=== PATIENT | male | born 1965 | race Asian ===

== ENCOUNTER 2019-05-11 09:41 | Outpatient (CLI) | payer BC ==
--- NOTE | 2019-05-11 12:09 | MRI ---
MULTI PARAMETRIC MRI OF THE PELVIS (PROSTATE) WITH AND WITHOUT IV CONTRAST WITH REVIEW ON INDEPENDENT 3-D WORKSTATION: HISTORY: Elevated PSA (7.71 on 04/20/2019), prostate biopsy. Family history of prostate cancer COMPARISON: None FINDINGS: PROSTATE: The prostate gland measures 6.3 x 4 x 4.2 cm with a volume of 55 cc. PERIPHERAL ZONE: No focal abnormal areas of restricted diffusion is seen to suggest malignant process . TRANSITIONAL ZONE: No lentiform area of abnormally decreased T2 signal is seen to suggest a malignant process. Small focal areas of high T1 signal are seen consistent with biopsy-related hemorrhage No focal arterial enhancing mass is seen. Prostatic capsule is intact. The seminal vesicles are intact. LYMPH NODES: No lymphadenopathy is seen. SOFT TISSUES: Pelvic sidewall is normal. No abnormality of the visualized rectum is seen. BONES: No abnormal areas of signal replacement on the T1-weighted sequences are seen to suggest osseo us metastatic disease. IMPRESSION: PI-RADS 2: Low (clinically significant prostate cancer is unlikely to be present). This exam was interpreted in consultation with Dr. Patric Taylor who concurs.
[2019-05-11] MEDS ORDERED: Magnevist 469MG/ML 20 ML VIAL ONE (15:59)
== END 2019-05-11 09:42 | disposition home or self-care (01) ==
LOC: TBSIIMAG 09:41
PROVIDERS: ATTEND Urology
DX: R97.20 Elevated prostate specific antigen [PSA] (principal); Z80.42 Family history of malignant neoplasm of prostate; Z98.890 Other specified postprocedural states
CPT/HCPCS: 72197; A9579

== ENCOUNTER 2019-11-18 06:35 | Day surgery (SDC) | payer BC ==
[2019-11-13 12:03] VITALS: BMI 19.9
[2019-11-18] MEDS ORDERED: Levofloxacin 500 mg/D5W 100 ml Premix Bag ONE (07:15)
[2019-11-18] MEDS ORDERED: Midazolam HCl 2 mg/2 ml Vial ONE (08:08)
[2019-11-18] MEDS ORDERED: Fentanyl 100 MCG/2 ML VIAL ONE (08:08)
[2019-11-18] MEDS ORDERED: Ondansetron PF 4 MG/2 ML Vial ONE (09:30)
[2019-11-18] MEDS ORDERED: PROPOFOL 200 MG/20 ML VIAL ONE (09:30)
[2019-11-18] MEDS ORDERED: EPHEDRINE 25 MG/5 ML SYRINGE ONE (09:30)
[2019-11-18] MEDS ORDERED: Dexamethasone 20 MG/5 ML VIAL ONE (09:30)
--- NOTE | 2019-11-18 09:54 | OP ---
DATE OF PROCEDURE: 11/18/2019 PREOPERATIVE DIAGNOSES: 1. A 54-year-old male with history of benign prostatic hypertrophy. 2. History of urinary retention. POSTOPERATIVE DIAGNOSES: 1. A 54-year-old male with history of benign prostatic hypertrophy. 2. History of urinary retention. PROCEDURES PERFORMED: Cystoscopy, UroLift implant x6. ANESTHESIA: TIVA. COMPLICATIONS: None apparent. DISPOSITION: To recovery room in stable condition. INDICATIONS FOR PROCEDURE AND HISTORY: Mr. Lira is a pleasant 54-year-old male with history of elevated PSA, has undergone multiple prostate biopsies including extended core negative for malignancy. He has significant BPH symptoms on maximal medical therapy, and had presented with urinary retention. He presents today for cysto, UroLift. Risks and complications of the procedure were reviewed with him in detail including, but not limited to: Bleeding, pain, infection, injury to adjacent organs, possible secondary definitive surgery such as TURP, gross hematuria, clot retention, injury to adjacent organs, migration of implant warranting further surgery. All questions were answered to satisfaction and desired to proceed. Alternatives of the procedure were discussed with him in detail including observation, TURP. DESCRIPTION OF PROCEDURE: After an informed consent was signed, the patient was taken to the operating room, placed in a dorsal lithotomy position with the genital area prepped and draped in the usual surgical sterile fashion. A 21-Scottish cystoscope was utilized for cystoscopy and again upon entering the bladder, there was bilobar hyperplasia of the prostate with somewhat of a high median bar. No intravesical median lobe was seen. Bladder was entered, which demonstrated trabeculation with the UOs about 3 to 4 mm proximal to the bladder neck. At this time, we transitioned to the UroLift scope with a visual obturator and passed to the level of the bladder. We treated the left side first. Care was taken to stay about 1.5 to 2 cm proximal to the bladder neck. We treated the left prostate lobe. This opened his bladder neck well with a mild anteriorly due to fluffy prostatic urethral mucosa. However, we were able to create a good anterior channel avoiding a fishmouth morphology. He does have lateral lobes obstructing persistently, therefore we placed further implants bilaterally. A total of 2 implants on the right lateral lobe placed, the left lateral lobe did require a total of 4 implants due to [id number] tissue. At the end of the procedure, his bladder neck was wide open with a good anterior channel. A total of 4 implants on the left, 2 on the right were placed. He tolerated the procedure well and transported to the recovery. He does have some prostatic urethral mucosa oozing, he has had undergone multiple prostate biopsies. I will leave an 18-Scottish 30 mL Mckeon catheter and monitor for degree of hematuria. If hematuria improves, we will initiate voiding trial, possibly discharge with indwelling Mckeon catheter, pending disposition reassessment. Job ID: [id number] [facility]
== END 2019-11-18 12:25 | disposition home or self-care (01) ==
LOC: SDC 06:35
PROVIDERS: ATTEND Urology
PROC: 0T7D8DZ Dilation of Urethra with Intraluminal Device, Via Natural or Artificial Opening Endoscopic (ICD-10-PCS; principal; 2019-11-18)
DX: N40.1 Benign prostatic hyperplasia with lower urinary tract symptoms (principal); R33.8 Other retention of urine; R39.11 Hesitancy of micturition; R80.9 Proteinuria, unspecified; E11.9 Type 2 diabetes mellitus without complications; Z79.899 Other long term (current) drug therapy; Z80.42 Family history of malignant neoplasm of prostate
CPT/HCPCS: C1889; J1100; J1956; J2250; J2405; J2704; J3010

== ENCOUNTER 2022-08-13 08:01 | Outpatient (CLI) | payer BC ==
[2022-08-13] MEDS ORDERED: Magnevist 469MG/ML 20 ML VIAL ONE (09:20)
== END 2022-08-13 08:02 | disposition home or self-care (01) ==
LOC: TBSIIMAG 08:01
PROVIDERS: ATTEND Urology
DX: R97.20 Elevated prostate specific antigen [PSA] (principal); Z80.42 Family history of malignant neoplasm of prostate
CPT/HCPCS: 72197